=== PATIENT | female | born 1935 | race Caucasian/White ===

== ENCOUNTER → 2017-04-10 | Outpatient (CLI) | payer OTHER ==
[~2017-04-10] MED LIST: AMLO2.5T PO; ASPI-1197 PO; CALCITRIOL PO; CARB-38 PO; CLOP75TA32 PO; INSLAN SQ; LEVO75TA10 PO; METO100T14 PO; NOVOLOG SQ; PANT40TA25 PO; PRAV80TA21 PO; RANO10003 PO; RASA0.5T PO; TYL3 PO; [UNRECOGNIZED DRUG - OTHER] PO
== END | disposition home or self-care (01) ==
LOC: RAH 10:17
PROVIDERS: ATTEND Physical Medicine & Rehabilitation
DX: M51.16 Intervertebral disc disorders with radiculopathy, lumbar region (principal); M51.15 Intervertebral disc disorders with radiculopathy, thoracolumbar region; M48.061 Spinal stenosis, lumbar region without neurogenic claudication; M41.86 Other forms of scoliosis, lumbar region
CPT/HCPCS: 72148